=== PATIENT | male | born 1990 | race African-American/Black ===

== ENCOUNTER 2020-04-16 08:46 | Emergency (ER) | payer MEDICAID, OTHER ==
[~2020-04-16] VITALS: Ht 188 cm; Wt 94.3 kg
[2020-04-16 08:53] VITALS: BP 129/74
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
[2020-04-16] MEDS ORDERED: NEOMYCIN/POLYMYXIN/BACITRACIN 0.9 GM/1 PKT TP ONE (09:20)
[2020-04-16] MEDS ORDERED: LIDOCAINE/EPI 1% 1:100000 20 ML VIAL INJ ONE (09:20)
--- NOTE | 2020-04-16 11:15 | NUR ---
APPLIED BACITRACIN TO PT LAC, PT LAC DRESSED WITH NON-ADHERENT GUAZE PAD AND WRAPPED WITH BULKEE 3" GUAZE ROLL, PT ALSO PLACED IN RIGHT SIDE SLING
[2020-04-16 11:36] VITALS: BP 118/84
--- NOTE | 2020-04-16 11:36 | NUR ---
Patient discharged with v/s stable. Written and verbal after care instructions given and explained. Patient alert, oriented and verbalized understanding of instructions. Ambulatory with steady gait. All questions addressed prior to discharge. ID band removed. Patient advised to follow up with PMD. Rx of bACITRACIN 500UNIT AND NAPROSYN 500MG given. Patient educated on indication of medication including possible reaction and side effects. Opportunity to ask questions provided and answered.
== END 2020-04-16 11:36 | disposition home or self-care (01) ==
LOC: MED 08:46
DX: S61.411A Laceration without foreign body of right hand, initial encounter (principal); J45.909 Unspecified asthma, uncomplicated; W25.XXXA Contact with sharp glass, initial encounter; Y93.89 Activity, other specified; Y92.89 Other specified places as the place of occurrence of the external cause; Y99.8 Other external cause status
CPT/HCPCS: 73140; 99283; J2001

== ENCOUNTER 2021-01-26 09:57 | Emergency (ER) | payer MEDICAID ==
[~2021-01-26] VITALS: Ht 188 cm; Wt 95.3 kg
[2021-01-26 10:07] VITALS: BP 147/68
--- NOTE | 2021-01-26 10:10 | NUR ---
Patient ambulated to bed 01 with steady/even gait.
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
--- NOTE | 2021-01-26 10:11 | NUR ---
Dr. Pereira is evaluating patient at bedside
--- NOTE | 2021-01-26 10:20 | NUR ---
RAD at bedside
--- NOTE | 2021-01-26 10:21 | NUR ---
EMT at bedside for wound irrigation
[2021-01-26] MEDS ORDERED: LIDOCAINE MPF 1% 5 ML ONE (10:42)
[2021-01-26] MEDS ORDERED: LIDOCAINE MPF 1% 10 MG/ML VIAL INJ ONE (10:45)
--- NOTE | 2021-01-26 10:55 | NUR ---
Dr. Pereira at bedside for laceration repair
[2021-01-26] MEDS ORDERED: BACITRACIN OINT 500 UNITS/GM PKT TP ONE ×2 (11:02→11:05)
[2021-01-26] MEDS ORDERED: CEPH-588 PO (11:12)
== END 2021-01-26 11:29 | disposition home or self-care (01) ==
LOC: MED 09:57
DX: S51.012A Laceration without foreign body of left elbow, initial encounter (principal); W45.8XXA Other foreign body or object entering through skin, initial encounter; Y93.89 Activity, other specified; Y92.89 Other specified places as the place of occurrence of the external cause; Y99.8 Other external cause status
CPT/HCPCS: 12002; 73080; 99284; J2001; Q0092

== ENCOUNTER 2022-10-31 20:22 | Emergency (ER) | payer MEDICAID ==
[~2022-10-31] VITALS: Ht 188 cm; Wt 111.1 kg
[~2022-10-31 20:22] MED LIST: CEPH-588 PO
[2022-10-31 20:49] VITALS: BP 113/79; PULSE 72; RESP 16; TEMP 97.4; O2SAT 99
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
--- NOTE | 2022-10-31 23:40 | NUR ---
[facility] EXAMINING THE PT.
--- NOTE | 2022-10-31 23:50 | NUR ---
XRAY AT BEDSIDE
[2022-11-01] MEDS ORDERED: IBUP-2213 PO (00:19)
[2022-11-01] MEDS ORDERED: AMOX-999 PO (00:19)
[2022-11-01] MEDS ORDERED: ACET-10509 PO (00:19)
[2022-11-01 00:35] VITALS: BP 110/75; PULSE 76; RESP 16; TEMP 97.2; O2SAT 99
--- NOTE | 2022-11-01 00:35 | NUR ---
Patient discharged with v/s stable. Written and verbal after care instructions given and explained. Patient alert, oriented and verbalized understanding of instructions. Ambulatory with steady gait. All questions addressed prior to discharge. ID band removed. Patient advised to follow up with PMD. Rx given to pt. Patient educated on indication of medication including possible reaction and side effects. Opportunity to ask questions provided and answered.
== END 2022-11-01 00:35 | disposition home or self-care (01) ==
LOC: MED 20:22
DX: S61.451A Open bite of right hand, initial encounter (principal); Z79.899 Other long term (current) drug therapy; Y04.2XXA Assault by strike against or bumped into by another person, initial encounter; Y93.89 Activity, other specified; Y92.89 Other specified places as the place of occurrence of the external cause; Y99.8 Other external cause status
CPT/HCPCS: 73130; 99283; Q0092